=== PATIENT | female | born 1945 | race Two or more races ===

== ENCOUNTER 2019-05-19 09:37 | Outpatient (CLI) | payer OTHER | END 2019-05-19 09:42 | disposition home or self-care (01) | LOC: MAMO-SONO 09:37 | DX: Z12.31 Encounter for screening mammogram for malignant neoplasm of breast (principal); N64.4 Mastodynia ==

== ENCOUNTER 2022-07-09 06:25 | Day surgery (SDC) | payer OTHER ==
[~2022-07-09] VITALS: Ht 154.9 cm; Wt 68.0 kg
[~2022-07-09 06:25] MED LIST: SYNTHROID50 MCG PO; TOPROL XL25 M1 PO; ZOCOR20 MG PO
== END 2022-07-09 16:50 | disposition home or self-care (01) ==
LOC: CIR.AMB 06:25
PROVIDERS: ATTEND Specialist
DX: D05.12 Intraductal carcinoma in situ of left breast (principal); N60.92 Unspecified benign mammary dysplasia of left breast; N60.82 Other benign mammary dysplasias of left breast; Z17.0 Estrogen receptor positive status [ER+]; Z20.822 Contact with and (suspected) exposure to COVID-19; Z91.013 Allergy to seafood; Z91.041 Radiographic dye allergy status; I10 Essential (primary) hypertension; E03.9 Hypothyroidism, unspecified
CPT/HCPCS: 19301; 19281; L8699